=== PATIENT | male | born 1940 | race Caucasian/White ===

== ENCOUNTER 2018-11-14 02:45 | Emergency (ER) | payer MEDICARE, OTHER ==
[2018-11-14 03:09] VITALS: BP 176/87
[2018-11-14] MEDS ORDERED: Ketorolac 60 MG/2 ML SDV IM ONE (03:38)
[2018-11-14] MEDS ORDERED: HYDROmorphone 0.5 MG/0.5 ML Syringe IM ONE (03:39)
--- NOTE | 2018-11-14 03:53 | EDM.PDOC ---
ED HPI GENERAL MEDICAL PROBLEM - General Chief Complaint: Neck Problem Stated Complaint: NECK, ARM PAIN Time Seen by Provider: 11/14/18 03:42 Source of Information: Reports: Patient History Limitations: Reports: No Limitations - History of Present Illness INITIAL COMMENTS - FREE TEXT/NARRATIVE: pt developed severe pain in the rt post cervical aarea. This extends over to the top of the shoulder. Pt states his pain is so severe at times that he just can not find a comfortable spot. He does not have numbness in the rt arm. Onset: Other ( started about 2-3 days ago. ) Duration: Day(s):, Getting Worse Location: Reports: Neck, Upper Extremity, Right Associated Symptoms: Reports: No Other Symptoms, Other ( Pt has not had a injury. 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: Other Medication(s) Right Shoulder Pain Score (Numeric/FACES): 9 - Related Data Allergies Allergy/AdvReac Type Severity Reaction Status Date / Time acetaminophen [From Vicodin] Allergy Rash Verified 11/14/18 03:03 atorvastatin calcium Allergy Weakness Verified 11/14/18 03:03 [From Lipitor] hydrocodone bitartrate Allergy Rash Verified 11/14/18 03:03 [From Vicodin] Home Meds: Home Meds Nitroglycerin [Nitrostat] 0.4 mg SL Q5M PRN 09/10/13 [History] Simvastatin 40 mg PO DAILY 09/10/13 [History] Terazosin HCl [Terazosin] 2 mg PO DAILY 09/10/13 [History] Triamterene/Hydrochlorothiazid [Triamterene-HCTZ 37.5-25 MG] 1 tab PO DAILY [History] Warfarin Sodium 10 mg PO ASDIRECTED 09/10/13 [History] Aspirin 81 mg PO DAILY 11/14/18 [History] Cyclobenzaprine [Flexeril] 10 mg PO TID PRN 11/14/18 [History] Diclofenac Sodium [Voltaren 1% Gel] 1 applic TOP ASDIRECTED PRN 11/14/18 [ History] Losartan [Cozaar] 50 mg PO DAILY 11/14/18 [History] Metoprolol Succinate [Toprol XL] 25 mg PO DAILY 11/14/18 [History] Past Medical History HEENT History: Reports: Cataract Cardiovascular History: Reports: CAD, Heart Valve Replacement, High Cholesterol , Hypertension Other Cardiovascular History: cabg x 3 Respiratory History: Reports: Pneumonia, Recurrent Gastrointestinal History: Reports: GERD Musculoskeletal History: Reports: Arthritis, Fracture, RA Other Musculoskeletal History: knee, arm, ribs Endocrine/Metabolic History: Reports: Obesity/BMI 30+, Other (See Below) Other Endocrine/Metabolic History: borderline diabetic Hematologic History: Reports: Blood Transfusion(s) Other Hematologic History: hematoma from injury on anticoagulants - Infectious Disease History Infectious Disease History: Reports: Chicken Pox, MRSA - Past Surgical History HEENT Surgical History: Reports: Cataract Surgery Cardiovascular Surgical History: Reports: Coronary Artery Bypass, Valve Replacement GI Surgical History: Reports: Appendectomy, Cholecystectomy, Colonoscopy, Hernia Repair/Other Social & Family History - Tobacco Use Smoking Status *Q: Never Smoker Second Hand Smoke Exposure: No - Caffeine Use Caffeine Use: Reports: Coffee - Recreational Drug Use Recreational Drug Use: No ED ROS GENERAL - Review of Systems Review Of Systems: See Below Constitutional: Reports: No Symptoms HEENT: Reports: No Symptoms Respiratory: Reports: No Symptoms Cardiovascular: Reports: No Symptoms Endocrine: Reports: No Symptoms GI/Abdominal: Reports: No Symptoms : Reports: No Symptoms Musculoskeletal: Reports: Other ( severe pain in the rt post cervical area and extends to the shoulder) ED EXAM, UPPER BACK/NECK PAIN - Physical Exam Exam: See Below Text/Narrative:: pt arrived with surinder in the rt post cervical area extending over the rt shoulder. Exam Limited By: No Limitations General Appearance: Alert, Severe Distress, Other ( Pt is having episodes of severe neck pain. ) Ears Exam: Normal TMs Nose Exam: Normal Inspection Throat/Mouth Exam: Normal Inspection Head Exam: Atraumatic Neck Exam: Paraspinous Muscle Tender, Other (pt is very tender over the lower cervical spine with muscle spasm lateral to that on the rt. ) Cardiovascular/Respiratory: Regular Rate, Rhythm Course - Vital Signs Last Recorded V/S: Last Vital Signs Temp 35.6 C 11/14/18 03:06 Pulse 80 11/14/18 03:06 Resp 16 11/14/18 03:06 BP 176/87 H 11/14/18 03:06 Pulse Ox 94 L 11/14/18 03:06 - Orders/Labs/Meds Labs: Laboratory Tests 11/14/18 11/14/18 Range/Units 03:52 03:52 WBC 5.9 (4.5-11.0) K/uL RBC 4.80 (4.30-5.90) M/uL Hgb 13.8 (12.0-15.0) g/dL Hct 40.4 (40.0-54.0) % MCV 84 (80-98) fL MCH 29 (27-31) pg MCHC 34 (32-36) % Plt Count 145 L (150-400) K/uL Neut % (Auto) 54 (36-66) % Lymph % (Auto) 31 (24-44) % Bent % (Auto) 12 H (2-6) % Eos % (Auto) 3 (2-4) % Baso % (Auto) 1 (0-1) % PT 26.3 H (9.5-12.0) sec INR 2.52 H (0.80-1.20) Meds: Medications Discontinued Medications Generic Name Dose Route Start Last Admin Trade Name Freq PRN Reason Stop Dose Admin Hydromorphone HCl 0.5 mg 11/14/18 03:39 11/14/18 03:50 Dilaudid IM 11/14/18 03:40 0.5 mg ONETIME ONE Administration Ketorolac Tromethamine 60 mg 11/14/18 03:38 11/14/18 03:45 Toradol IM 11/14/18 03:39 Not Given ONETIME ONE - Re-Assessments/Exams Free Text/Narrative Re-Assessment/Exam: 11/14/18 04:18 pt had cervical spine series which showed severe degenerative changes in the lower cervical spine with narrowed interspaces. He was given dilaudid .5 and he did get some relief of the pain. Departure - Departure Time of Disposition: 04:23 Disposition: Home, Self-Care 01 Condition: Fair Clinical Impression: Cervical nerve root compression - Discharge Information Instructions: Cervical Radiculopathy, [id number] Referrals: Ezra Lambert MD [Primary Care Provider] - Forms: ED Department Discharge Care Plan Goals: rest, moist warm packs to rt post cervical area. continue flexeril particularly at nite, percocet 5/325 q6h prn for pain # 10 If not better pt may need a MRI of the neck, appt with Dr Lambert in 1 week.
--- NOTE | 2018-11-14 08:56 | CR ---
Cervical Spine Min 4V CLINICAL HISTORY: Severe neck pain on right FINDINGS: There is head tilting towards the right. The vertebral body heights are intact. The disc spaces are narrowed in the lower cervical spine. There is moderate to severe diffuse spondylosis. There is moderate to severe diffuse osteoarthritis throughout the apophyseal joints.. There is minimal anterolisthesis of C4 on C5 likely related to facet disease. There is bony neural foraminal encroachment at multiple levels bilaterally to a moderate degree Incidental note of moderate fairly heavy plaque calcifications in both carotid bifurcations. 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
== END 2018-11-14 04:45 | disposition home or self-care (01) ==
LOC: JP.ED 02:45
DX: G54.2 Cervical root disorders, not elsewhere classified (principal); E78.00 Pure hypercholesterolemia, unspecified; I10 Essential (primary) hypertension; I25.10 Atherosclerotic heart disease of native coronary artery without angina pectoris; Z95.1 Presence of aortocoronary bypass graft; Z88.8 Allergy status to other drugs, medicaments and biological substances; Z88.6 Allergy status to analgesic agent; Z88.5 Allergy status to narcotic agent; Z79.82 Long term (current) use of aspirin; Z79.899 Other long term (current) drug therapy
CPT/HCPCS: 36415; 72050; 85025; 85610; 96372; 99284; J1170

== ENCOUNTER 2019-12-20 22:48 | Emergency (ER) | payer MEDICARE, OTHER ==
[2019-12-20 23:06] VITALS: PULSE 74
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
[2019-12-20 23:54] VITALS: BP 123/59
== END 2019-12-20 23:54 | disposition home or self-care (01) ==
LOC: JP.ED 22:48
DX: L03.011 Cellulitis of right finger (principal); I10 Essential (primary) hypertension; I25.10 Atherosclerotic heart disease of native coronary artery without angina pectoris; E78.00 Pure hypercholesterolemia, unspecified; K21.9 Gastro-esophageal reflux disease without esophagitis; M06.9 Rheumatoid arthritis, unspecified; E66.9 Obesity, unspecified; Z68.37 Body mass index [BMI] 37.0-37.9, adult; Z95.1 Presence of aortocoronary bypass graft; Z88.8 Allergy status to other drugs, medicaments and biological substances; Z79.01 Long term (current) use of anticoagulants; Z79.899 Other long term (current) drug therapy
CPT/HCPCS: 99283

== ENCOUNTER 2019-12-25 07:28 | Day surgery (SDC) | payer MEDICARE, OTHER ==
[~2019-12-25 07:28] MED LIST: Bupivacaine 0.5% 50 ML MDV ONE; Lidocaine 1% with EPINEPHrine 1:100,000 50 ML MDV ONE; Lidocaine 2% Jelly 10 ML Urojet ONE; Lidocaine 2% Jelly 30 ML Tube ONE
[2019-12-25] MEDS ORDERED: Propofol 200 MG/20 ML SDV ONE (07:29)
[2019-12-25] MEDS ORDERED: fentaNYL 100 MCG/2 ML SDV ONE (07:29)
[2019-12-25] MEDS ORDERED: Midazolam 1 MG/ML 2 ML SDV ONE (07:29)
[2019-12-25] MEDS: Sodium Chloride 0.9% 1,000 ML IV SCH (07:59)
[2019-12-25] MEDS ORDERED: Bupivacaine 0.5% 30 ML SDV ONE (08:22)
[2019-12-25] MEDS: Lidocaine 1% 20 ML MDV ONE (10:11)
[2019-12-25 10:49] VITALS: BP 134/76; PULSE 62
--- NOTE | 2019-12-25 11:10 | OR ---
DATE OF PROCEDURE: 12/25/2019 SURGEON: Emeka hTomas MD PROCEDURE: Debridement right 3rd finger. FINDINGS: Fluid-filled pocket in contact with bone, concerning for osteomyelitis. COMPLICATIONS: None. NOODLE PRESS OPERATOR: None. ANESTHESIA: MAC. PREOPERATIVE DIAGNOSIS: Infected right 3rd finger. POSTOPERATIVE DIAGNOSIS: Infected right 3rd finger. RISKS: Risks, benefits, alternatives, and limitations including, but not limited to infection, bleeding, osteomyelitis, sepsis, and other risks not listed here were explained to the patient, who wished to proceed. PROCEDURE IN DETAIL: The patient was placed in supine position. A digital block was performed, and the finger was incised with a 15 blade. Small amount of fluid was noted. This was cultured and then thoroughly irrigated. The finger was also debrided superficially using a 15 blade. Dressings were applied. The patient tolerated the procedure well. Emeka Thomas MD /[id number]
== END 2019-12-25 10:35 | disposition home or self-care (01) ==
LOC: JP.SDS 07:28
PROVIDERS: ATTEND Surgery
DX: L03.011 Cellulitis of right finger (principal); E11.36 Type 2 diabetes mellitus with diabetic cataract; H25.12 Age-related nuclear cataract, left eye; I25.10 Atherosclerotic heart disease of native coronary artery without angina pectoris; I10 Essential (primary) hypertension; E78.5 Hyperlipidemia, unspecified; E66.9 Obesity, unspecified; Z68.34 Body mass index [BMI] 34.0-34.9, adult; Z88.5 Allergy status to narcotic agent; Z88.8 Allergy status to other drugs, medicaments and biological substances; Z79.01 Long term (current) use of anticoagulants; Z79.899 Other long term (current) drug therapy
CPT/HCPCS: 10140; 11000; 87070; 87075; 87077; 87186; 87205; J2001; J2250; J2704; J3010; J3490; J7030

== ENCOUNTER 2020-04-11 00:11 | Emergency (ER) | payer MEDICARE, OTHER ==
--- NOTE | 2020-04-11 00:52 | EDM.PDOC ---
ED HPI GENERAL MEDICAL PROBLEM - General Chief Complaint: Genitourinary Problem Stated Complaint: BLOOD IN URINE Time Seen by Provider: 04/11/20 00:45 Source of Information: Reports: Patient, Old Records History Limitations: Reports: No Limitations - History of Present Illness INITIAL COMMENTS - FREE TEXT/NARRATIVE: 80 yo male had a prostate bx last Sunday. He is on warfarin and Lovenox currently. Lovenox until his INR is at or above 2.0. He noticed some blood in his urine around noon and it has worsened. He was told this could happen. No fever. Onset: Gradual Onset Date: 04/10/20 Duration: Hour(s):, Getting Worse Location: Reports: Pelvis (urine) Quality: Reports: Burning (minimal) Severity: Mild Improves with: Reports: None Worsens with: Reports: Other (? time) Context: Reports: Other (See HPI) Associated Symptoms: Reports: No Other Symptoms. Denies: Fever/Chills Treatments BRONC BUSTER: Reports: Other (see below) (none) - Related Data Allergies Allergy/AdvReac Type Severity Reaction Status Date / Time atorvastatin calcium Allergy Weakness Verified 04/11/20 00:23 [From Lipitor] hydrocodone bitartrate Allergy Rash Verified 04/11/20 00:23 [From Vicodin] Home Meds: Home Meds Nitroglycerin [Nitrostat] 0.4 mg SL Q5M PRN 09/10/13 [History] Simvastatin 40 mg PO DAILY 09/10/13 [History] Terazosin HCl [Terazosin] 2 mg PO DAILY 09/10/13 [History] Triamterene/Hydrochlorothiazid [Triamterene-HCTZ 37.5-25 MG] 1 tab PO DAILY 09/10/13 [History] Warfarin Sodium 10 mg PO ASDIRECTED 09/10/13 [History] Cyclobenzaprine [Flexeril] 10 mg PO TID PRN 11/14/18 [History] Losartan [Cozaar] 50 mg PO DAILY 11/14/18 [History] Metoprolol Succinate [Toprol XL] 25 mg PO DAILY 11/14/18 [History] Enoxaparin Sodium 111 mg SUBCUT BID 04/11/20 [History] Omeprazole Magnesium [Prilosec Otc] 1 tab PO DAILY 04/11/20 [History] Past Medical History HEENT History: Reports: Cataract Cardiovascular History: Reports: CAD, Heart Valve Replacement, High Cholesterol, Hypertension Other Cardiovascular History: cabg x 3 Respiratory History: Reports: Pneumonia, Recurrent Gastrointestinal History: Reports: GERD Genitourinary History: Reports: BPH Musculoskeletal History: Reports: Arthritis, Fracture, RA Other Musculoskeletal History: knee, arm, ribs. right hand 3rd digit injury Endocrine/Metabolic History: Reports: Obesity/BMI 30+, Other (See Below) Other Endocrine/Metabolic History: borderline diabetic Hematologic History: Reports: Blood Transfusion(s) Other Hematologic History: hematoma from injury on anticoagulants - Infectious Disease History Infectious Disease History: Reports: Chicken Pox, Measles, Mumps - Past Surgical History HEENT Surgical History: Reports: Cataract Surgery Cardiovascular Surgical History: Reports: Coronary Artery Bypass, Valve Replacement GI Surgical History: Reports: Appendectomy, Cholecystectomy, Colonoscopy, Hernia Repair/Other Male Surgical History: Reports: Prostate Biopsy Social & Family History - Family History Family Medical History: Noncontributory - Tobacco Use Smoking Status *Q: Never Smoker - Caffeine Use Caffeine Use: Reports: Coffee - Recreational Drug Use Recreational Drug Use: No ED ROS GENERAL - Review of Systems Review Of Systems: See Below Constitutional: Reports: No Symptoms : Reports: Dysuria (minimal), Hematuria. Denies: Frequency, Urinary Retention Musculoskeletal: Reports: No Symptoms Skin: Denies: Bruising Neurological: Reports: No Symptoms ED EXAM, RENAL/ - Physical Exam Exam: See Below Exam Limited By: No Limitations General Appearance: Alert, WD/WN, No Apparent Distress Eye Exam: Bilateral Eye: Normal Inspection Ears: Normal External Exam, Hearing Grossly Normal Nose: Normal Inspection, No Blood Throat/Mouth: Normal Voice, No Airway Compromise Head: Atraumatic, Normocephalic Neck: Normal Inspection Respiratory/Chest: No Respiratory Distress, No Accessory Muscle Use Neurological: Alert, Oriented, CN II-XII Intact, Normal Cognition, No Motor/Sensory Deficits Psychiatric: Normal Affect, Normal Mood Skin Exam: Warm, Dry, Intact, Normal Color, No Rash Course - Vital Signs Last Recorded V/S: Last Vital Signs Temp 35.4 C L 04/11/20 00:29 Pulse 75 04/11/20 00:29 Resp 16 04/11/20 00:29 BP 128/63 04/11/20 00:29 Pulse Ox 98 04/11/20 00:29 - Orders/Labs/Meds Labs: Laboratory Tests 04/11/20 04/11/20 Range/Units 00:34 00:45 PT 16.1 H (9.5-12.0) sec INR 1.53 H D (0.80-1.20) Urine Color Brown A (YELLOW) Urine Appearance Cloudy A (CLEAR) Urine pH 5.5 (5.0-8.0) Ur Specific [place] 1.015 (1.008-1.030) Urine Protein 100 H (NEGATIVE) mg/dL Urine Glucose (UA) Negative (NEGATIVE) mg/dL Urine Ketones Negative (NEGATIVE) mg/dL Urine Occult Blood Large H (NEGATIVE) Urine Nitrite Negative (NEGATIVE) Urine Bilirubin Negative (NEGATIVE) Urine Urobilinogen 0.2 (0.2-1.0) EU/dL Ur Leukocyte Esterase Negative (NEGATIVE) Urine RBC >100 H (0-5) Urine WBC 0-5 (0-5) Ur Epithelial Cells Rare Amorphous Sediment Not seen Urine Bacteria Many Urine Mucus Not seen Departure - Departure Time of Disposition: 01:10 Disposition: Home, Self-Care 01 Condition: Good Clinical Impression: Gross hematuria - Discharge Information *PRESCRIPTION DRUG MONITORING PROGRAM REVIEWED*: Not Applicable *COPY OF PRESCRIPTION DRUG MONITORING REPORT IN PATIENT YANELIS: Not Applicable Referrals: Ezra Lambert MD [Primary Care Provider] - Forms: ED Department Discharge Additional Instructions: Continue your current meds. Drink ample fluids so that you don't make clots in your bladder that could cause you to plug up. Discuss your situation with your urologist on Sunday. Return if you can't urinate. Sepsis Event Note (ED) - Evaluation Sepsis Screening Result: No Definite Risk - Focused Exam Vital Signs: Vital Signs Temp Pulse Resp BP Pulse Ox 04/11/20 00:29 35.4 C L 75 16 128/63 98 04/11/20 00:21 35.4 C L 75 16 128/63 98
[2020-04-11 03:17] VITALS: BP 128/63; PULSE 75
== END 2020-04-11 01:13 | disposition home or self-care (01) ==
LOC: JP.ED 00:11
DX: R31.0 Gross hematuria (principal); I25.10 Atherosclerotic heart disease of native coronary artery without angina pectoris; E78.00 Pure hypercholesterolemia, unspecified; I10 Essential (primary) hypertension; Z79.01 Long term (current) use of anticoagulants; E66.9 Obesity, unspecified; Z95.1 Presence of aortocoronary bypass graft; Z68.37 Body mass index [BMI] 37.0-37.9, adult; Z88.5 Allergy status to narcotic agent; Z88.8 Allergy status to other drugs, medicaments and biological substances; K21.9 Gastro-esophageal reflux disease without esophagitis; Z79.899 Other long term (current) drug therapy
CPT/HCPCS: 36415; 81001; 85610; 99283

== ENCOUNTER 2022-02-01 09:29 | Emergency (ER) | payer MEDICARE, OTHER ==
[2022-02-01] MEDS ORDERED: Sodium Chloride 0.9% 10 ML Syringe FLUSH PRN (11:27)
[2022-02-01 11:29] LABS: CORONAVIRUS COVID-19 NAA NEGATIVE (NEGATIVE)
[2022-02-01] MEDS ORDERED: Sodium Chloride 0.9% 1,000 ML IV SCH (11:30)
[2022-02-01] MEDS ORDERED: Iopamidol 612 MG/ML 100 ML Bottle IV PRN (11:33)
[2022-02-01] MEDS ORDERED: Sodium Chloride 0.9% 100 ML IV SCH (11:45)
[2022-02-01 14:08] VITALS: BP 124/68; PULSE 70
== END 2022-02-01 14:08 | disposition home or self-care (01) ==
LOC: JP.ED 09:29
DX: R19.7 Diarrhea, unspecified (principal); I25.10 Atherosclerotic heart disease of native coronary artery without angina pectoris; E78.00 Pure hypercholesterolemia, unspecified; I10 Essential (primary) hypertension; K21.9 Gastro-esophageal reflux disease without esophagitis; N40.0 Benign prostatic hyperplasia without lower urinary tract symptoms; E66.9 Obesity, unspecified; Z68.35 Body mass index [BMI] 35.0-35.9, adult; Z88.5 Allergy status to narcotic agent; Z88.8 Allergy status to other drugs, medicaments and biological substances; Z86.16 Personal history of COVID-19; Z79.01 Long term (current) use of anticoagulants; Z79.899 Other long term (current) drug therapy; Z20.822 Contact with and (suspected) exposure to COVID-19
CPT/HCPCS: 0241U; 36415; 74177; 74177-26; 80053; 83605; 83690; 84484; 85025; 85610; 87046; 87899; 89055; 99283; 99284-25; J3490; J7030; Q9967

== ENCOUNTER 2022-02-18 18:05 | Emergency (ER) | payer MEDICARE, OTHER ==
[2022-02-18] MEDS ORDERED: Sodium Chloride 0.9% 1,000 ML IV SCH (19:15)
[2022-02-18] MEDS ORDERED: Acetaminophen/HYDROcodone 325-5 MG Tab PO ONE (19:46)
[2022-02-18] MEDS ORDERED: Acetaminophen/oxyCODONE 325-5 MG Tab PO ONE (19:54)
[2022-02-18 20:09] VITALS: BP 141/57; PULSE 68
== END 2022-02-18 21:15 | disposition home or self-care (01) ==
LOC: JP.ED 18:05
DX: R50.9 Fever, unspecified (principal); R79.82 Elevated C-reactive protein (CRP); I25.10 Atherosclerotic heart disease of native coronary artery without angina pectoris; E78.00 Pure hypercholesterolemia, unspecified; I10 Essential (primary) hypertension; K21.9 Gastro-esophageal reflux disease without esophagitis; N40.0 Benign prostatic hyperplasia without lower urinary tract symptoms; E66.9 Obesity, unspecified; Z68.30 Body mass index [BMI] 30.0-30.9, adult; Z88.8 Allergy status to other drugs, medicaments and biological substances; Z88.5 Allergy status to narcotic agent; Z79.899 Other long term (current) drug therapy; Z95.4 Presence of other heart-valve replacement
CPT/HCPCS: 36415; 71046; 71046-26; 80053; 81001; 83605; 84145; 84484; 85025; 85610; 86140; 87040; 87077; 87088; 93005; 99284-25; A9270-GY; J7030

== ENCOUNTER 2022-02-20 04:38 | Emergency (ER) | payer MEDICARE, OTHER ==
[2022-02-20] MEDS ORDERED: Sodium Chloride 0.9% 10 ML Syringe FLUSH PRN (04:55)
[2022-02-20] MEDS ORDERED: cefTRIAXone 2 GM in Sodium Chloride 0.9% 50 ML IV ONE (05:19)
[2022-02-20 05:42] VITALS: BP 114/72; PULSE 57
== END 2022-02-20 06:23 ==
LOC: JP.ED 04:38
DX: I33.0 Acute and subacute infective endocarditis (principal); R78.81 Bacteremia; I25.10 Atherosclerotic heart disease of native coronary artery without angina pectoris; E66.9 Obesity, unspecified; Z79.01 Long term (current) use of anticoagulants; I10 Essential (primary) hypertension; E78.00 Pure hypercholesterolemia, unspecified; K21.9 Gastro-esophageal reflux disease without esophagitis; Z68.34 Body mass index [BMI] 34.0-34.9, adult; Z20.822 Contact with and (suspected) exposure to COVID-19
CPT/HCPCS: 36415; 71045; 80053; 84145; 85025; 85610; 86140; 96365; 99285; J0696; U0002

== ENCOUNTER 2023-09-02 07:06 | Emergency (ER) | payer MEDICARE, OTHER ==
[2023-09-02 08:01] LABS: CORONAVIRUS COVID-19 NAA NEGATIVE (NEGATIVE); INFLUENZA A NAA NEGATIVE (NEGATIVE); INFLUENZA B NAA NEGATIVE (NEGATIVE); RESPIRATORY SYNCYTIAL VIR NAA NEGATIVE (NEGATIVE)
[2023-09-02 08:11] LABS: BASOPHILS ABSOLUTE AUTO 0.04 K/uL (0.00-0.10); BASOPHILS PERCENT AUTO 0.4 % (0.1-1.3); EOSINOPHILS PERCENT AUTO 1.8 % (0.0-5.4); HEMATOCRIT 37.8 % (38.4-49.7); HEMOGLOBIN 12.5 g/dL (12.9-16.9); IMMATURE GRAN ABSOLUTE AUTO 0.05 K/uL (0.00-0.23); IMMATURE GRAN PERCENT AUTO 0.4 % (0.0-0.7); LYMPHOCYTES ABSOLUTE AUTO 1.89 K/uL (0.8-3.3); LYMPHOCYTES PERCENT AUTO 16.6 % (11.4-47.7); MEAN CORPUSCULAR HEMOGLOBIN 28.5 pg (31.6-35.5); MEAN CORPUSCULAR HGB CONC 33.1 g/dL (31.6-35.5); MEAN CORPUSCULAR VOLUME 86.1 fL (81.4-99.0); MONOCYTES ABSOLUTE AUTO 0.95 K/uL (0.20-0.90); MONOCYTES PERCENT AUTO 8.3 % (3.3-12.6); NEUTROPHILS ABSOLUTE AUTO 8.27 K/uL (1.0-7.6); NEUTROPHILS PERCENT AUTO 72.5 % (40.0-78.1); PLATELET COUNT,PLT 166 K/uL (130-375); RED BLOOD CELL COUNT 4.39 M/uL (4.14-5.76); WHITE BLOOD CELL COUNT,WBC 11.4 K/uL (3.2-11.0)
[2023-09-02 08:28] LABS: ANION GAP 12.7 mmol/L (5.0-14.0); C-REACTIVE PROTEIN 0.78 mg/dL (0.0-0.3); CALCIUM 8.6 mg/dL (8.5-10.1); CREATININE 1.3 mg/dL (0.8-1.3); EST CRCL DRUG DOSING (CG) 40.96 mL/min; POTASSIUM,K 4.7 mmol/L (3.6-5.2)
[2023-09-02 09:52] VITALS: BP 134/58; PULSE 60
== END 2023-09-02 10:30 | disposition home or self-care (01) ==
LOC: JP.ED 07:06
DX: J18.9 Pneumonia, unspecified organism (principal); I25.10 Atherosclerotic heart disease of native coronary artery without angina pectoris; I10 Essential (primary) hypertension; K21.9 Gastro-esophageal reflux disease without esophagitis; M06.9 Rheumatoid arthritis, unspecified; E66.9 Obesity, unspecified; Z88.8 Allergy status to other drugs, medicaments and biological substances; Z88.5 Allergy status to narcotic agent; Z79.82 Long term (current) use of aspirin; Z79.899 Other long term (current) drug therapy
CPT/HCPCS: 0241U; 36415; 71045; 71045-26; 80048; 83605; 85025; 86140; 99283; 99285

== ENCOUNTER 2024-05-21 06:58 | Emergency (ER) | payer MEDICARE, OTHER ==
[2024-05-21 07:30] VITALS: BP 149/58; PULSE 68
[2024-05-21 08:05] LABS: BASOPHILS PERCENT AUTO 0.2 % (0.1-1.3); EOSINOPHILS ABSOLUTE AUTO 0.09 K/uL (0.00-0.40); EOSINOPHILS PERCENT AUTO 0.9 % (0.0-5.4); HEMATOCRIT 32.3 % (38.4-49.7); HEMOGLOBIN 10.9 g/dL (12.9-16.9); IMMATURE GRAN ABSOLUTE AUTO 0.03 K/uL (0.00-0.23); IMMATURE GRAN PERCENT AUTO 0.3 % (0.0-0.7); LYMPHOCYTES ABSOLUTE AUTO 1.85 K/uL (0.8-3.3); MEAN CORPUSCULAR HEMOGLOBIN 28.7 pg (31.6-35.5); MEAN CORPUSCULAR HGB CONC 33.7 g/dL (31.6-35.5); MONOCYTES ABSOLUTE AUTO 1.11 K/uL (0.20-0.90); MONOCYTES PERCENT AUTO 10.8 % (3.3-12.6); NEUTROPHILS ABSOLUTE AUTO 7.16 K/uL (1.0-7.6); NEUTROPHILS PERCENT AUTO 69.8 % (40.0-78.1); PLATELET COUNT,PLT 167 K/uL (130-375); WHITE BLOOD CELL COUNT,WBC 10.3 K/uL (3.2-11.0)
[2024-05-21 08:14] LABS: BASOPHILS ABSOLUTE AUTO 0.02 K/uL (0.00-0.10)
[2024-05-21 09:12] LABS: APPEARANCE,URINE CLOUDY (CLEAR); BILIRUBIN,URINE NEGATIVE (NEGATIVE); COLOR,URINE RED (YELLOW); GLUCOSE,URINE NEGATIVE (NEGATIVE); KETONES,URINE NEGATIVE (NEGATIVE); LEUKOCYTE ESTERASE,URINE LARGE (NEGATIVE); NITRITE,URINE NEGATIVE (NEGATIVE); PROTEIN,URINE >=300 mg/dL (NEGATIVE); UROBILINOGEN,URINE 0.2 EU/dL (0.2-1.0)
[2024-05-21 09:16] LABS: OCCULT BLOOD,URINE LARGE (NEGATIVE); RBC,URINE PACKED (0-5)
== END 2024-05-21 09:01 | disposition home or self-care (01) ==
LOC: JP.ED 06:58
DX: N39.0 Urinary tract infection, site not specified (principal); I10 Essential (primary) hypertension; E78.00 Pure hypercholesterolemia, unspecified; E11.9 Type 2 diabetes mellitus without complications; E66.9 Obesity, unspecified; Z68.32 Body mass index [BMI] 32.0-32.9, adult; Z90.49 Acquired absence of other specified parts of digestive tract; Z79.899 Other long term (current) drug therapy; Z79.84 Long term (current) use of oral hypoglycemic drugs; Z88.5 Allergy status to narcotic agent; Z88.8 Allergy status to other drugs, medicaments and biological substances
CPT/HCPCS: 36415; 81001; 85025; 87086; 87088; 87186; 99283

== ENCOUNTER 2024-06-01 07:23 | Emergency (ER) | payer MEDICARE, OTHER ==
[2024-06-01 07:32] VITALS: BP 132/41; PULSE 73
[2024-06-01 07:52] LABS: APPEARANCE,URINE CLOUDY (CLEAR); BILIRUBIN,URINE NEGATIVE (NEGATIVE); GLUCOSE,URINE NEGATIVE (NEGATIVE); KETONES,URINE NEGATIVE (NEGATIVE); LEUKOCYTE ESTERASE,URINE MODERATE (NEGATIVE); NITRITE,URINE NEGATIVE (NEGATIVE); OCCULT BLOOD,URINE LARGE (NEGATIVE); PH,URINE 5.5 (5.0-8.0); PROTEIN,URINE 30 mg/dL (NEGATIVE); UROBILINOGEN,URINE 0.2 EU/dL (0.2-1.0)
[2024-06-01 07:53] LABS: BACTERIA,URINE MODERATE; COLOR,URINE OTHER (YELLOW); EPITHELIAL CELLS,URINE NOT SEEN
[2024-06-01 07:54] LABS: AMORPHOUS SEDIMENT,URINE NOT SEEN; MUCUS,URINE NOT SEEN
[2024-06-01 08:53] LABS: BASOPHILS ABSOLUTE AUTO 0.03 K/uL (0.00-0.10); BASOPHILS PERCENT AUTO 0.3 % (0.1-1.3); EOSINOPHILS ABSOLUTE AUTO 0.12 K/uL (0.00-0.40); EOSINOPHILS PERCENT AUTO 1.1 % (0.0-5.4); HEMATOCRIT 35.3 % (38.4-49.7); HEMOGLOBIN 11.8 g/dL (12.9-16.9); IMMATURE GRAN ABSOLUTE AUTO 0.03 K/uL (0.00-0.23); IMMATURE GRAN PERCENT AUTO 0.3 % (0.0-0.7); LYMPHOCYTES ABSOLUTE AUTO 2.41 K/uL (0.8-3.3); LYMPHOCYTES PERCENT AUTO 22.6 % (11.4-47.7); MEAN CORPUSCULAR HEMOGLOBIN 28.5 pg (31.6-35.5); MEAN CORPUSCULAR HGB CONC 33.4 g/dL (31.6-35.5); MEAN CORPUSCULAR VOLUME 85.3 fL (81.4-99.0); MONOCYTES ABSOLUTE AUTO 0.93 K/uL (0.20-0.90); MONOCYTES PERCENT AUTO 8.7 % (3.3-12.6); NEUTROPHILS ABSOLUTE AUTO 7.13 K/uL (1.0-7.6); PLATELET COUNT,PLT 194 K/uL (130-375); RED BLOOD CELL COUNT 4.14 M/uL (4.14-5.76); WHITE BLOOD CELL COUNT,WBC 10.7 K/uL (3.2-11.0)
[2024-06-01 09:06] LABS: BLOOD UREA NITROGEN,BUN 48 mg/dL (7-18); CALCIUM 8.9 mg/dL (8.5-10.1); CARBON DIOXIDE,CO2 27 mmol/L (21-32); CHLORIDE,CL 102 mmol/L (100-108); CREATININE 1.7 mg/dL (0.8-1.3); ESTIMATED GFR 40 mL/min (>60); GLUCOSE RANDOM 143 mg/dL (74-106); POTASSIUM,K 5.4 mmol/L (3.6-5.2); SODIUM,NA 137 mmol/L (140-148)
[2024-06-01 09:10] LABS: ANION GAP 13.4 mmol/L (5.0-14.0)
== END 2024-06-01 09:19 | disposition home or self-care (01) ==
LOC: JP.ED 07:23
DX: N30.01 Acute cystitis with hematuria (principal); I10 Essential (primary) hypertension; E78.00 Pure hypercholesterolemia, unspecified; E11.9 Type 2 diabetes mellitus without complications; E66.9 Obesity, unspecified; Z95.1 Presence of aortocoronary bypass graft; Z79.899 Other long term (current) drug therapy; Z79.01 Long term (current) use of anticoagulants; Z79.84 Long term (current) use of oral hypoglycemic drugs; Z88.8 Allergy status to other drugs, medicaments and biological substances
CPT/HCPCS: 36415; 80048; 81001; 85025; 87086; 87088; 87186; 99283